=== PATIENT | female | born 2000 | race Caucasian/White ===

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

== ENCOUNTER 2021-07-27 11:54 | Outpatient (REF) | payer BC, MEDICAID, SELFPAY ==
[2021-07-27 12:40] LABS: COVID-19 Test Negative (Negative); IDNOW Serial# 16C4AD1C
== END 2021-07-27 11:55 | disposition home or self-care (01) ==
LOC: HO.LAB 11:54
PROVIDERS: Visit Provider Internal Medicine
DX: Z20.822 Contact with and (suspected) exposure to COVID-19 (principal)
CPT/HCPCS: 87635; C9803

== ENCOUNTER 2021-08-17 13:16 | Outpatient (REF) | payer BC, MEDICAID, SELFPAY ==
[2021-08-17 13:40] LABS: COVID-19 Test Negative (Negative); IDNOW Serial# 16C4AD1C
== END 2021-08-17 13:17 | disposition home or self-care (01) ==
LOC: HO.LAB 13:16
PROVIDERS: Visit Provider Internal Medicine
DX: Z20.822 Contact with and (suspected) exposure to COVID-19 (principal)
CPT/HCPCS: 87635; C9803

== ENCOUNTER 2021-08-19 11:08 | Outpatient (REF) | payer BC, MEDICAID, SELFPAY ==
[2021-08-19 11:28] LABS: COVID-19 Test Negative (Negative); IDNOW Serial# 16C4AD1C
== END 2021-08-19 11:09 | disposition home or self-care (01) ==
LOC: HO.LAB 11:08
PROVIDERS: Visit Provider Internal Medicine
DX: Z20.822 Contact with and (suspected) exposure to COVID-19 (principal)
CPT/HCPCS: 87635; C9803

== ENCOUNTER 2021-08-31 19:07 | Emergency (ER) | payer BC, MEDICAID, SELFPAY ==
[2021-08-31 20:58] VITALS: BP 147/91; PULSE 93; RESP 18; TEMP 36.6; O2SAT 100; BMI 35.2
--- NOTE | 2021-08-31 21:01 | ECG_ITS ---
Test Reason : CHEST PAIN Blood Pressure : / mmHG Vent. Rate : 095 BPM Atrial Rate : 095 BPM P-R Int : 132 ms QRS Dur : 080 ms QT Int : 352 ms P-R-T Axes : 074 092 059 degrees QTc Int : 442 ms Normal sinus rhythm with sinus arrhythmia Rightward axis Borderline ECG No previous ECGs available Referred By: Generic ED Physician Electronically Signed By:KATIE RAMÍREZ
[2021-08-31 23:22] LABS: MANUAL DIFF FLAG NO
[2021-08-31 23:23] LABS: Basophils Absolute Auto 0.1 X10*3/uL (0.0-0.2); Basophils Percent Auto 0.5 % (0-2); Eosinophils Absolute Auto 0.1 X10*3/uL (0.0-0.4); Eosinophils Percent Auto 0.6 % (0-4); Hematocrit 40.4 % (37.0-47.0); Hemoglobin 12.6 g/dl (12.0-16.0); Imm Gran Abs Auto 0.04 X10*3/uL (0.00-0.03); Imm Gran Pct Auto 0.3 % (0.0-0.4); Lymphocytes Absolute Auto 3.9 X10*3/uL (1.2-4.9); Lymphocytes Percent Auto 27.2 % (20-40); Mean Corpuscular HGB Conc 31.2 g/dl (31.0-35.0); Mean Corpuscular Hemoglobin 25.6 pg (27.0-33.0); Mean Corpuscular Volume 82.1 fL (80.0-98.0); Mean Platelet Volume 10.4 fL (9.4-12.3); Monocytes Absolute Auto 1.2 X10*3/uL (0.1-1.2); Monocytes Percent Auto 8.4 % (2-11); Platelet Count 351 X10*3/uL (160-400); Red Blood Count 4.92 X10*6/uL (4.20-5.50); Red Cell Distribution Width 13.2 % (11.0-16.0); White Blood Count 14.2 X10*3/uL (4.8-10.8)
[2021-08-31 23:27] LABS: UPreg QC Valid YES; Urine Pregnancy NEGATIVE (NEGATIVE)
[2021-08-31 23:31] LABS: D Dimer High Sensitivity 321 NG/ML
[2021-08-31 23:36] LABS: Anion Gap 11 (12-20); Blood Urea Nitrogen 8 mg/dL (9-16); Calcium 9.7 mg/dL (8.4-10.2); Carbon Dioxide 26 mmol/L (22-29); Chloride 107 mmol/L (96-108); Creatinine Clr Calc Pharmacy 137.7; Estimated Glomerular Filt Rate > 60; Glucose Random 93 mg/dL (60-115); Sodium 140 mmol/L (135-145)
[2021-08-31 23:36] LABS: COVID-19 Test Negative (Negative)
[2021-08-31 23:44] LABS: Troponin-I High Sensitivity < 3.5 ng/L (<3.5-17.0)
[2021-08-31 23:44] LABS: Appearance Urine CLEAR; Color Urine YELLOW; Glucose Urine UA NEG (NEG); Leukocyte Esterase Urine TRACE (NEG); Nitrite Urine NEG (NEG); UACC Culture Trigger YES; Urine Blood NEG (NEG); Urine Ketones NEG (NEG); Urine Protein NEG (NEG-TRACE)
[2021-08-31 23:47] LABS: Bacteria Urine 2+ /LPF; Mucus Urine 2+ /LPF; Squamous Epithelial Cell Urine 1+ /LPF
[2021-09-01 00:01] LABS: Erythrocyte Sedimentation Rate 13 MM/HR (0-20)
[2021-09-01 00:42] VITALS: BP 108/76; PULSE 99; RESP 18; TEMP 36.9; O2SAT 99
--- NOTE | 2021-09-01 00:57 | ED.ARRPALP ---
HPI - Arrhythmia/Palpitations General Chief Complaint: Arrhythmia/Palpitations Stated Complaint: chest pain Time Seen by Provider: 08/31/21 22:53 Source: patient Mode of arrival: ambulatory Limitations: no limitations History of Present Illness HPI narrative: 21-year-old female who presents emergency department for evaluation of palpitations. The patient states that yesterday morning at around 09:00 hours she experienced a fast heart pounding sensation. She states that the sensation when last seconds to 2 minutes at its most. She did feel slightly dizzy with the sensation. She denied losing consciousness. Chest pain, shortness of breath or dyspnea on exertion. She has not had any pain or swelling in her lower extremities. She denies going on any long trips. She states that the symptoms were intermittent she was getting them throughout the day therefore she came to the emergency department for evaluation. The patient states she does have anxiety that is not treated. She states that she was anxious throughout the day. She cannot specify any thing that is causing her anxiety. She drinks 1-2 cups of coffee every other day, she does not drink any energy drinks. She states she does vape tobacco products. She occasionally smokes marijuana and she last smoked marijuana on Monday, 5 days prior to evaluation. The patient does not take oral contraceptives. Related Data Allergies Allergy/AdvReac Type Severity Reaction Status Date / Time No Known Allergies Allergy Verified 08/31/21 20:58 Review of Systems Review of Systems: Yes all other systems are reviewed and are negative [facility] Past Medical History [facility] Narrative: Past medical history: Anxiety. Past surgical history: None. Social history: Patient smokes/vapes tobacco products. She denies alcohol use. She states she occasionally smokes marijuana. Social History Social History Advance Directives: No Physical Exam Vital Signs: Vital Signs: Last Vital Signs Temp 98.4 F 09/01/21 00:42 Pulse 99 09/01/21 00:42 Resp 18 09/01/21 00:42 BP 108/76 09/01/21 00:42 Pulse Ox 99 09/01/21 00:42 BMI result Body Mass Index 35.2 Const: General: cooperative and no acute distress Orientation/consciousness: oriented to person and oriented to place Limitations: no limitations HENMT: Head: Yes normal to inspection, Yes normocephalic and Yes atraumatic Ears: external ears normal General nose exam: Normal external nose present Face and sinus: Yes normal facial exam Mouth: Normal oral and palatal mucosa present Throat: Yes posterior oropharynx normal Eyes: General: appearance normal, both eyes and all related structures Pupils: Equal, round and reactive pupils present Neck: Neck: Yes normal visual inspection, Yes no lymphadenopathy, Yes trachea midline and Yes supple Chest: Chest palpation & inspection: normal inspection of the chest and normal palpation of entire chest wall Resp: Effort & Inspection: normal respiratory effort and able to speak in complete sentences Auscultation: clear to auscultation bilaterally Cardio: Rate: regular rate Rhythm: regular rhythm Heart sounds: S1 normal heart sound present, S2 normal heart sound present and no murmurs GI: Inspection: Yes normal to inspection Palpation (GI): Soft to palpation, nontender and no guarding Auscultation: normal bowel sounds : General: Yes no CVA tenderness Back/Spine/Pelvis: Back: no CVA tenderness Skin: General skin exam: no rashes or lesions noted Neuro: General: oriented to person and oriented to place Cranial nerves: Yes CN's II-XII intact bilaterally and Yes Equal, round and reactive pupils present Cognition (Neuro): normal cognition Motor exam (neuro): 5/5 motor strength present throughout Extrem: General: Yes normal to inspection Psych: Appearance: grossly normal Speech and movement: Normal speech and movement present Affect: normal affect Attitude: cooperative Thought process: Normal thought process present Thought content: Normal thought content present Course Course Course Narrative: 21-year-old female who presents emergency department for evaluation of intermittent palpitations lasting from seconds to 2 minutes at its most. Patient had occasional associated dizziness but no other concerning symptoms. She did not lose consciousness. She denied chest pain, shortness of breath or dyspnea on exertion. She has not gone on any long trips and is not on oral contraceptives. Vital signs did reveal an initial elevated blood pressure of 147/91 with repeat blood pressure of 108/76, she was not tachycardic. Her O2 saturation ranged from 99-100% on room air. Physical examination was unremarkable. Twelve EKG revealed no significant abnormalities. Laboratory evaluation [place] [address] and elevated D-dimer 321. Troponin was below detectable limits. At this time, I do not think the patient has a DVT or PE is the cause for symptoms. Patient's symptoms are more likely related to anxiety and possibly her caffeine intake. I did discuss this with her. The patient was given verbal and printed instructions and palpitations and discharged home. MDM - Arrhythmia/Palpitations Lab Data Result diagrams: 08/31/21 23:13 08/31/21 23:13 Labs: Lab Results 08/31/21 08/31/21 08/31/21 Range/Units 23:13 23:13 23:13 WBC (4.8-10.8) X10*3/uL RBC (4.20-5.50) X10*6/uL Hgb (12.0-16.0) g/dl Hct (37.0-47.0) % MCV (80.0-98.0) fL MCH (27.0-33.0) pg MCHC (31.0-35.0) g/dl RDW (11.0-16.0) % Plt Count (160-400) X10*3/uL MPV (9.4-12.3) fL Immature Gran % (Auto) (0.0-0.4) % Neut % (Auto) (45-73) % Lymph % (Auto) (20-40) % Mathews % (Auto) (2-11) % Eos % (Auto) (0-4) % Baso % (Auto) (0-2) % Lymph # (Auto) (1.2-4.9) X10*3/uL Mathews # (Auto) (0.1-1.2) X10*3/uL Eos # (Auto) (0.0-0.4) X10*3/uL Baso # (Auto) (0.0-0.2) X10*3/uL Abs Immat Gran (auto) (0.00-0.03) X10*3/uL Absolute Neuts (auto) (2.0-8.3) x10*3/uL Absolute Nucleated RBC (0.0-0.012) X10*3/uL Nucleated RBC % (auto) (0.0-0.2) /100WBC ESR 13 (0-20) MM/HR D-Dimer High Sensitivty 321 NG/ML Sodium 140 (135-145) mmol/L Potassium 4.0 (3.3-5.1) mmol/L Chloride 107 (96-108) mmol/L Carbon Dioxide 26 (22-29) mmol/L Anion Gap 11 L (12-20) BUN 8 L (9-16) mg/dL Creatinine 0.72 (0.5-1.4) mg/dL Estim Creat Clear Calc 137.7 Estimated GFR > 60 Random Glucose 93 (60-115) mg/dL Calcium 9.7 (8.4-10.2) mg/dL Troponin I High Sens (<3.5-17.0) ng/L Urine Color Urine Appearance Urine pH (5.0-8.0) Ur Specific Shepherd (1.005-1.025) Urine Protein (NEG-TRACE) MG/DL Urine Glucose (UA) (NEG) MG/DL Urine Ketones (NEG) MG/DL Urine Blood (NEG) Urine Nitrite (NEG) Ur Leukocyte Esterase (NEG) Urine RBC (0) /HPF Urine WBC (0-4) /HPF Ur Squamous Epith Cells /LPF Urine Bacteria /LPF Urine Mucus /LPF Urine Test (NEGATIVE) COVID-19 ([facility]) (Negative) COVID-19 Clin Com 08/31/21 08/31/21 08/31/21 Range/Units 23:13 23:13 23:14 WBC 14.2 H (4.8-10.8) X10*3/uL RBC 4.92 (4.20-5.50) X10*6/uL Hgb 12.6 (12.0-16.0) g/dl Hct 40.4 (37.0-47.0) % MCV 82.1 (80.0-98.0) fL MCH 25.6 L (27.0-33.0) pg MCHC 31.2 (31.0-35.0) g/dl RDW 13.2 (11.0-16.0) % Plt Count 351 (160-400) X10*3/uL MPV 10.4 (9.4-12.3) fL Immature Gran % (Auto) 0.3 (0.0-0.4) % Neut % (Auto) 63.0 (45-73) % Lymph % (Auto) 27.2 (20-40) % Mathews % (Auto) 8.4 (2-11) % Eos % (Auto) 0.6 (0-4) % Baso % (Auto) 0.5 (0-2) % Lymph # (Auto) 3.9 (1.2-4.9) X10*3/uL Mathews # (Auto) 1.2 (0.1-1.2) X10*3/uL Eos # (Auto) 0.1 (0.0-0.4) X10*3/uL Baso # (Auto) 0.1 (0.0-0.2) X10*3/uL Abs Immat Gran (auto) 0.04 H (0.00-0.03) X10*3/uL Absolute Neuts (auto) 9.0 H (2.0-8.3) x10*3/uL Absolute Nucleated RBC 0.000 (0.0-0.012) X10*3/uL Nucleated RBC % (auto) 0.0 (0.0-0.2) /100WBC ESR (0-20) MM/HR D-Dimer High Sensitivty NG/ML Sodium (135-145) mmol/L Potassium (3.3-5.1) mmol/L Chloride (96-108) mmol/L Carbon Dioxide (22-29) mmol/L Anion Gap (12-20) BUN (9-16) mg/dL Creatinine (0.5-1.4) mg/dL Estim Creat Clear Calc Estimated GFR Random Glucose (60-115) mg/dL Calcium (8.4-10.2) mg/dL Troponin I High Sens < 3.5 (<3.5-17.0) ng/L Urine Color Urine Appearance Urine pH (5.0-8.0) Ur Specific [place] (1.005-1.025) Urine Protein (NEG-TRACE) MG/DL Urine Glucose (UA) (NEG) MG/DL Urine Ketones (NEG) MG/DL Urine Blood (NEG) Urine Nitrite (NEG) Ur Leukocyte Esterase (NEG) Urine RBC (0) /HPF Urine WBC (0-4) /HPF Ur Squamous Epith Cells /LPF Urine Bacteria /LPF Urine Mucus /LPF Urine Test (NEGATIVE) COVID-19 ([facility]) Negative (Negative) COVID-19 Clin Com See Note 08/31/21 08/31/21 Range/Units 23:15 23:16 WBC (4.8-10.8) X10*3/uL RBC (4.20-5.50) X10*6/uL Hgb (12.0-16.0) g/dl Hct (37.0-47.0) % MCV (80.0-98.0) fL MCH (27.0-33.0) pg MCHC (31.0-35.0) g/dl RDW (11.0-16.0) % Plt Count (160-400) X10*3/uL MPV (9.4-12.3) fL Immature Gran % (Auto) (0.0-0.4) % Neut % (Auto) (45-73) % Lymph % (Auto) (20-40) % Mathews % (Auto) (2-11) % Eos % (Auto) (0-4) % Baso % (Auto) (0-2) % Lymph # (Auto) (1.2-4.9) X10*3/uL Mathews # (Auto) (0.1-1.2) X10*3/uL Eos # (Auto) (0.0-0.4) X10*3/uL Baso # (Auto) (0.0-0.2) X10*3/uL Abs Immat Gran (auto) (0.00-0.03) X10*3/uL Absolute Neuts (auto) (2.0-8.3) x10*3/uL Absolute Nucleated RBC (0.0-0.012) X10*3/uL Nucleated RBC % (auto) (0.0-0.2) /100WBC ESR (0-20) MM/HR D-Dimer High Sensitivty NG/ML Sodium (135-145) mmol/L Potassium (3.3-5.1) mmol/L Chloride (96-108) mmol/L Carbon Dioxide (22-29) mmol/L Anion Gap (12-20) BUN (9-16) mg/dL Creatinine (0.5-1.4) mg/dL Estim Creat Clear Calc Estimated GFR Random Glucose (60-115) mg/dL Calcium (8.4-10.2) mg/dL Troponin I High Sens (<3.5-17.0) ng/L Urine Color YELLOW Urine Appearance CLEAR Urine pH 7.0 (5.0-8.0) Ur Specific Shepherd 1.020 (1.005-1.025) Urine Protein NEG (NEG-TRACE) MG/DL Urine Glucose (UA) NEG (NEG) MG/DL Urine Ketones NEG (NEG) MG/DL Urine Blood NEG (NEG) Urine Nitrite NEG (NEG) Ur Leukocyte Esterase TRACE H (NEG) Urine RBC 1-4 (0) /HPF Urine WBC 1-4 (0-4) /HPF Ur Squamous Epith Cells 1+ /LPF Urine Bacteria 2+ /LPF Urine Mucus 2+ /LPF Urine Test NEGATIVE (NEGATIVE) COVID-19 ([facility]) (Negative) COVID-19 Clin Com Discharge Plan Discharge Clinical Impression: Palpitations, Anxiety Patient Disposition: Home, Self-Care Instructions: Heart Palpitations (DC), Anxiety (ED) Additional Instructions: Your 12 EKG was unremarkable. Your COVID-19 was negative. Your troponin was below detectable limits, this is a good sign and suggests that you have not had any heart damage as the cause of your fast heart beat. Your symptoms are consistent with palpitations, this can sometimes be triggered by anxiety or too much caffeine. Stop using caffeine products for at least 2 weeks. Follow-up with your doctor in 2 days. Please return to the emergency department if your symptoms get worse or if you develop any symptoms that are concerning to you. Please read the discharge instructions on anxiety and palpitations.
== END 2021-09-01 01:13 | disposition home or self-care (01) ==
PROVIDERS: Student in an Organized Health Care Education/Training Program; Emergency Provider Emergency Medicine Emergency Medical Services
DX: R00.2 Palpitations (principal); F41.9 Anxiety disorder, unspecified; Z20.822 Contact with and (suspected) exposure to COVID-19; F17.200 Nicotine dependence, unspecified, uncomplicated; F12.90 Cannabis use, unspecified, uncomplicated
CPT/HCPCS: 36415; 80048; 81001; 81025; 84484; 85025; 85379; 85652; 87086; 87635; 93005; 99284

== ENCOUNTER 2021-11-05 17:29 | Emergency (ER) | payer BC, MEDICAID, SELFPAY ==
[2021-11-05 17:32] VITALS: BP 133/80; PULSE 110; RESP 19; TEMP 36.6; O2SAT 99; BMI 36.0
[2021-11-05 18:10] LABS: COVID-19 Test Negative (Negative); IDNOW Serial# 55D5AD1C
[2021-11-05 18:11] LABS: Influenza A Negative (Negative); Influenza B2 Negative (Negative)
--- NOTE | 2021-11-05 18:32 | ED.GENADULT ---
HPI - General Adult General Chief complaint: General Medical Stated complaint: nausea/body aches/headaches Time Seen by Provider: 11/05/21 18:31 History of Present Illness HPI narrative: patient is a 21-year-old female presents today with generalized malaise body aches. Immunized for COVID. Symptoms been ongoing for 2 days. No focal weakness. No photophobia. No changes in vision. Positive headache positive generalized aches. No pain on urination. No frequency. No abdominal pain. No nausea no vomiting no diarrhea. Question coughing. No diaphoresis. Just feels very drained. Related Data Allergies Allergy/AdvReac Type Severity Reaction Status Date / Time No Known Allergies Allergy Verified 08/31/21 20:58 Review of Systems Review of Systems: Positive diffuse body ache no nausea no vomiting no diarrhea Yes all other systems are reviewed and are negative [facility] Past Medical History Attestation statement: The following information was validated with the patient. Social History Social History Advance Directives: No Advance Directives Information Provided: No Physical Exam ED Vital Signs: Vital Signs - 24 hr 11/05/21 17:32 Temperature 98 F Pulse Rate 110 H Respiratory Rate 19 Blood Pressure 133/80 Pulse Oximetry 99 BMI result Body Mass Index 36.0 Appearance: Alert. Oriented X3. No acute distress. Eyes: Pupils equal, round and reactive to light. ENT: Pharynx normal. Neck: Normal inspection. Neck supple. No lymph nodes noted. No crepitus CVS: Normal heart rate and rhythm. Pulses normal. Normal S1 and S2 Respiratory: No respiratory distress. Breath sounds normal. No Wheezing. No rales Abdomen: Soft and nontender. No rigidity. No distention. good BS x4 Skin: Skin warm and dry. Normal skin color. Normal skin turgor. Extremities: No lower extremity edema. Neurovascular intact to all extremities. No Lacerations. No Rash Neuro: Oriented X 3. No motor deficit. No sensory deficit. Moving all extermities. No slurred speech Medical Decision Making MDM Narrative Medical decision making narrative: COVID and flu test were negative. Urine no gross infection lots of contamination. Will discharge patient home likely viral syndrome. test was negative. Likely viral syndrome will discharge Lab Data Labs: Lab Results 11/05/21 11/05/21 11/05/21 Range/Units 17:40 17:40 18:36 Urine Color YELLOW Urine Appearance HAZY Urine pH 7.0 (5.0-8.0) Ur Specific [place] 1.025 (1.005-1.025) Urine Protein NEG (NEG-TRACE) MG/DL Urine Glucose (UA) NEG (NEG) MG/DL Urine Ketones 5 (NEG) MG/DL Urine Blood NEG (NEG) Urine Nitrite NEG (NEG) Ur Leukocyte Esterase 1+ H (NEG) Urine RBC 0 (0) /HPF Urine WBC 5-9 H (0-4) /HPF Ur Squamous Epith Cells 3+ /LPF Amorphous Sediment 2+ /LPF Urine Bacteria 2+ /LPF Urine Test (NEGATIVE) COVID-19 ([facility]) Negative (Negative) COVID-19 [facility] [employer] [facility] Com See Note Influenza Type A ([facility]) Negative (Negative) Influenza Type B ([facility]JA) Negative (Negative) Influenza A & B Note See Note 11/05/21 Range/Units 18:36 Urine Color Urine Appearance Urine pH (5.0-8.0) Ur Specific [place] (1.005-1.025) Urine Protein (NEG-TRACE) MG/DL Urine Glucose (UA) (NEG) MG/DL Urine Ketones (NEG) MG/DL Urine Blood (NEG) Urine Nitrite (NEG) Ur Leukocyte Esterase (NEG) Urine RBC (0) /HPF Urine WBC (0-4) /HPF Ur Squamous Epith Cells /LPF Amorphous Sediment /LPF Urine Bacteria /LPF Urine Test NEGATIVE (NEGATIVE) COVID-19 ([facility]) (Negative) COVID-19 [facility] [employer] [facility] Com Influenza Type A ([facility]JA) (Negative) Influenza Type B ([facility]JA) (Negative) Influenza A & B Note Discharge Plan Discharge Clinical Impression: Viral illness Patient Disposition: Home, Self-Care Instructions: Viral Syndrome (ED) Referrals: [facility] [Physician] -
[2021-11-05 18:58] LABS: Appearance Urine HAZY; Color Urine YELLOW; Glucose Urine UA NEG (NEG); Leukocyte Esterase Urine 1+ (NEG); Nitrite Urine NEG (NEG); Specific Gravity - Urine 1.025 (1.005-1.025); UACC Culture Trigger YES; Urine Blood NEG (NEG); Urine Ketones 5 MG/DL (NEG); Urine Protein NEG (NEG-TRACE)
[2021-11-05 19:00] LABS: UPreg QC Valid YES; Urine Pregnancy NEGATIVE (NEGATIVE)
[2021-11-05 19:07] LABS: Amorphous Sediment Urine 2+ /LPF; Bacteria Urine 2+ /LPF; RBC Urine 0 /HPF (0); Squamous Epithelial Cell Urine 3+ /LPF; UACC CULT YES
== END 2021-11-05 19:55 | disposition home or self-care (01) ==
PROVIDERS: Emergency Provider Emergency Medicine Emergency Medical Services
DX: B34.9 Viral infection, unspecified (principal); M79.10 Myalgia, unspecified site; R51.9 Headache, unspecified; Z20.822 Contact with and (suspected) exposure to COVID-19; Z79.899 Other long term (current) drug therapy
CPT/HCPCS: 81001; 81025; 87086; 87502; 87635; 99283; 99284

== ENCOUNTER 2021-11-22 11:47 | Outpatient (REF) | payer BC, MEDICAID, SELFPAY ==
[2021-11-22 12:12] LABS: COVID-19 Test Positive (Negative)
== END 2021-11-22 11:48 | disposition home or self-care (01) ==
LOC: HO.LAB 11:47
PROVIDERS: Visit Provider Internal Medicine
DX: Z20.822 Contact with and (suspected) exposure to COVID-19 (principal)
CPT/HCPCS: 87635; C9803

== ENCOUNTER 2022-10-31 12:08 | Emergency (ER) | payer BC, MEDICAID, SELFPAY ==
--- NOTE | ~2022-10-31 | CT_ITS ---
EXAMINATION: CT ABDOMEN AND PELVIS WITH CONTRAST CLINICAL INFORMATION: Abdominal pain. COMPARISON: None available. TECHNIQUE: Multidetector volumetric images were obtained from the superior aspect of the liver through the pubic symphysis following administration 85 mL of Omnipaque 350 intravenous contrast. Sagittal and coronal reformatted images were obtained on the technologist's workstation. Oral contrast: No This CT examination was performed using dose optimization techniques as appropriate, variously including the following: *Automated exposure control *Adjustment of mA and/or kV according to patient size (this includes techniques or standardized protocols for targeted exams where dose is matched to indication/reason for exam; i.e. extremities or head) *Use of iterative reconstruction technique DLP: 683 mGy-cm FINDINGS: LUNG BASES: The visualized lung bases are unremarkable. LIVER, GALLBLADDER, AND BILIARY TREE: The liver is normal in size, shape, and attenuation. No focal hepatic lesion or biliary ductal dilatation is present. The gallbladder is unremarkable with no evidence of radiopaque gallstones, gallbladder wall thickening, or obvious pericholecystic inflammatory changes. PANCREAS: Unremarkable. SPLEEN: Unremarkable. ADRENAL GLANDS: Unremarkable. KIDNEYS AND URETERS: The kidneys are normal in size, shape, and attenuation. No hydronephrosis, hydroureter, or calculi seen. No perinephric stranding. BLADDER: Unremarkable. GASTROINTESTINAL TRACT: Stomach, small bowel, and colon are normal in caliber. No bowel wall thickening. Appendix is normal. Trace intraperitoneal free fluid, possibly physiologic. No retroperitoneal free air. ABDOMINAL WALL: No significant hernia is appreciated. LYMPH NODES: Numerous lymph nodes are present in the central abdominal mesentery measuring up to 18 mm in short axis. No separate areas of retroperitoneal adenopathy are identified. VASCULAR: Unremarkable. PELVIC VISCERA: Uterus is normal in size and appearance. There is a 2.3 cm cystic focus in the right ovary, likely follicular cyst. No suspicious adnexal lesions are identified. OSSEOUS STRUCTURES: No acute osseous findings. There is Castellvi type IIB transitional anatomy at the lumbosacral junction. CT/CT abdomen pelvis w IV con IMPRESSION: 1. No acute intra-abdominal or intrapelvic abnormalities are identified. 2. Prominent lymph nodes in the central abdominal mesentery. These are of uncertain etiology, though could be due to an infectious or inflammatory process such as mesenteric adenitis. No separate adenopathy is identified. 3. Trace intraperitoneal free fluid, likely physiologic. No suspicious adnexal lesions. Normal appendix. Fleischner guidelines were followed.
[2022-10-31 14:01] VITALS: BP 116/75; PULSE 87; RESP 18; TEMP 36.6; O2SAT 100; BMI 32.5
--- NOTE | 2022-10-31 14:01 | ED_ITS ---
HPI - Nausea/Vomiting/Diarrhea General Chief complaint: Nausea/Vomiting/Diarrhea Stated complaint: nausea vomiting diarrhea Time Seen by Provider: 10/31/22 20:46 Related Data Previous Rx's Medication Instructions Recorded ondansetron 4 mg disintegrating 4 mg PO TID PRN nausea and 10/31/22 tablet vomiting 5 days #10 tabs Allergies Allergy/AdvReac Type Severity Reaction Status Date / Time No Known Allergies Allergy Verified 10/31/22 14:04 [facility] Social History Social History Smoked in Last 30 Days: No Use of substances other than those prescribed or required for medical reasons: No Advance Directives: No Advance Directives Information Provided: No Physical Exam Vital Signs: Vital Signs: Last Vital Signs Temp 98.6 F 10/31/22 20:56 Pulse 70 10/31/22 20:56 Resp 16 10/31/22 20:56 BP 105/64 10/31/22 20:56 Pulse Ox 96 10/31/22 20:56 O2 Del Method Room Air 10/31/22 20:56 BMI result Body Mass Index 32.5 Course Course Course Narrative: RME: 22yo F c/o abdominal discomfort, nausea, vomiting and 1-3 loose stools daily x1 mos. Admits to blood in stool yesterday & decreased PO intake. Denies travel, fever, or recent abx use Labs, UA, Preg, COVID/FLU, Occult, Stool studies/CDiff ordered Full HPI, ROS and PE to be performed by primary ED provider. Medications Administered Discontinued Medications Generic Name Dose Route Start Last Admin Trade Name Freq PRN Reason Stop Dose Admin Sodium Chloride 1,000 mls @ 999 mls/hr 10/31/22 21:30 10/31/22 23:29 Ns IV 10/31/22 22:30 Infused .Q1H1M NADER Infusion Iohexol 100 ml 10/31/22 22:50 10/31/22 22:50 Iohexol 350 Mg/Ml 100 Ml Infus..Btl IV 10/31/22 22:51 85 ml ONCE ONE Administration Ondansetron HCl 4 mg 10/31/22 21:20 10/31/22 22:06 Ondansetron Hcl 4 Mg/2 Ml Vial IVPUSH 10/31/22 21:21 4 mg ONCE ONE Administration Ondansetron HCl 4 mg 10/31/22 23:15 10/31/22 23:29 Ondansetron Hcl 4 Mg/2 Ml Vial IVPUSH 10/31/22 23:16 4 mg ONCE ONE Administration Medical Decision Making Lab Data 10/31/22 16:10 10/31/22 16:09 Labs: Lab Results 10/31/22 10/31/22 10/31/22 Range/Units 16:09 16:09 16:09 WBC (4.8-10.8) X10*3/uL RBC (4.20-5.50) X10*6/uL Hgb (12.0-16.0) g/dl Hct (37.0-47.0) % MCV (80.0-98.0) fL MCH (27.0-33.0) pg MCHC (31.0-35.0) g/dl RDW (11.0-16.0) % Plt Count (160-400) X10*3/uL MPV (9.4-12.3) fL Immature Gran % (Auto) (0.0-0.4) % Neut % (Auto) (45-73) % Lymph % (Auto) (20-40) % [place] % (Auto) (2-11) % Eos % (Auto) (0-4) % Baso % (Auto) (0-2) % Lymph # (Auto) (1.2-4.9) X10*3/uL [place] # (Auto) (0.1-1.2) X10*3/uL Eos # (Auto) (0.0-0.4) X10*3/uL Baso # (Auto) (0.0-0.2) X10*3/uL Abs Immat Gran (auto) (0.00-0.03) X10*3/uL Absolute Neuts (auto) (2.0-8.3) x10*3/uL Absolute Nucleated RBC (0.0-0.012) X10*3/uL Nucleated RBC % (auto) (0.0-0.2) /100WBC Sodium 142 (135-145) mmol/L Potassium 4.2 (3.3-5.1) mmol/L Chloride 107 (96-108) mmol/L Carbon Dioxide 26 (22-29) mmol/L Anion Gap 13 (12-20) BUN 8 L (9-16) mg/dL Creatinine 0.69 (0.5-1.4) mg/dL Estim Creat Clear Calc 136.9 Estimated GFR > 60 Random Glucose 87 (60-115) mg/dL Calcium 9.5 (8.4-10.2) mg/dL Magnesium 2.2 (1.6-2.6) mg/dL Total Bilirubin 0.7 (0.0-1.0) mg/dL Direct Bilirubin 0.2 (0.0-0.5) mg/dL AST 23 (5-31) U/L ALT 24 (0-31) U/L Alkaline Phosphatase 59 (39-117) U/L Total Protein 7.2 (6.5-8.0) g/dL Albumin 4.1 (3.5-5.0) g/dL Lipase 11 (8-78) U/L Urine Color Urine Appearance Urine pH (5.0-9.0) Ur Specific [place] (1.005-1.025) Urine Protein (Neg-Trace) mg/dL Urine Glucose (UA) (Negative) mg/dL Urine Ketones (Negative) mg/dL Urine Blood (Negative) Urine Nitrite (Negative) Ur Leukocyte Esterase (Negative) Urine Test (NEGATIVE) Stool Occult Blood (NEGATIVE) COVID-19 ([facility]) Negative (Negative) COVID-19 Clin Com See Note Influenza Type A (TONJA) Negative (Negative) Influenza Type B (TONJA) Negative (Negative) Influenza A & B Note See Note 10/31/22 10/31/22 10/31/22 Range/Units 16:10 20:51 20:51 WBC 10.0 (4.8-10.8) X10*3/uL RBC 4.69 (4.20-5.50) X10*6/uL Hgb 12.3 (12.0-16.0) g/dl Hct 38.8 (37.0-47.0) % MCV 82.7 (80.0-98.0) fL MCH 26.2 L (27.0-33.0) pg MCHC 31.7 (31.0-35.0) g/dl RDW 13.7 (11.0-16.0) % Plt Count 312 (160-400) X10*3/uL MPV 9.6 (9.4-12.3) fL Immature Gran % (Auto) 0.3 (0.0-0.4) % Neut % (Auto) 60.5 (45-73) % Lymph % (Auto) 29.1 (20-40) % [place] % (Auto) 9.3 (2-11) % Eos % (Auto) 0.5 (0-4) % Baso % (Auto) 0.3 (0-2) % Lymph # (Auto) 2.9 (1.2-4.9) X10*3/uL [place] # (Auto) 0.9 (0.1-1.2) X10*3/uL Eos # (Auto) 0.1 (0.0-0.4) X10*3/uL Baso # (Auto) 0.0 (0.0-0.2) X10*3/uL Abs Immat Gran (auto) 0.03 (0.00-0.03) X10*3/uL Absolute Neuts (auto) 6.0 (2.0-8.3) x10*3/uL Absolute Nucleated RBC 0.000 (0.0-0.012) X10*3/uL Nucleated RBC % (auto) 0.0 (0.0-0.2) /100WBC Sodium (135-145) mmol/L Potassium (3.3-5.1) mmol/L Chloride (96-108) mmol/L Carbon Dioxide (22-29) mmol/L Anion Gap (12-20) BUN (9-16) mg/dL Creatinine (0.5-1.4) mg/dL Estim Creat Clear Calc Estimated GFR Random Glucose (60-115) mg/dL Calcium (8.4-10.2) mg/dL Magnesium (1.6-2.6) mg/dL Total Bilirubin (0.0-1.0) mg/dL Direct Bilirubin (0.0-0.5) mg/dL AST (5-31) U/L ALT (0-31) U/L Alkaline Phosphatase (39-117) U/L Total Protein (6.5-8.0) g/dL Albumin (3.5-5.0) g/dL Lipase (8-78) U/L Urine Color Yellow Urine Appearance Clear Urine pH 6.5 (5.0-9.0) Ur Specific [place] >= 1.030 H (1.005-1.025) Urine Protein Trace (Neg-Trace) mg/dL Urine Glucose (UA) Negative (Negative) mg/dL Urine Ketones >=160 (Negative) mg/dL Urine Blood Negative (Negative) Urine Nitrite Negative (Negative) Ur Leukocyte Esterase Negative (Negative) Urine Test NEGATIVE (NEGATIVE) Stool Occult Blood (NEGATIVE) COVID-19 ([facility]) (Negative) COVID-19 Clin Com Influenza Type A (TONJA) (Negative) Influenza Type B (TONJA) (Negative) Influenza A & B Note 10/31/22 Range/Units 21:28 WBC (4.8-10.8) X10*3/uL RBC (4.20-5.50) X10*6/uL Hgb (12.0-16.0) g/dl Hct (37.0-47.0) % MCV (80.0-98.0) fL MCH (27.0-33.0) pg MCHC (31.0-35.0) g/dl RDW (11.0-16.0) % Plt Count (160-400) X10*3/uL MPV (9.4-12.3) fL Immature Gran % (Auto) (0.0-0.4) % Neut % (Auto) (45-73) % Lymph % (Auto) (20-40) % [place] % (Auto) (2-11) % Eos % (Auto) (0-4) % Baso % (Auto) (0-2) % Lymph # (Auto) (1.2-4.9) X10*3/uL [place] # (Auto) (0.1-1.2) X10*3/uL Eos # (Auto) (0.0-0.4) X10*3/uL Baso # (Auto) (0.0-0.2) X10*3/uL Abs Immat Gran (auto) (0.00-0.03) X10*3/uL Absolute Neuts (auto) (2.0-8.3) x10*3/uL Absolute Nucleated RBC (0.0-0.012) X10*3/uL Nucleated RBC % (auto) (0.0-0.2) /100WBC Sodium (135-145) mmol/L Potassium (3.3-5.1) mmol/L Chloride (96-108) mmol/L Carbon Dioxide (22-29) mmol/L Anion Gap (12-20) BUN (9-16) mg/dL Creatinine (0.5-1.4) mg/dL Estim Creat Clear Calc Estimated GFR Random Glucose (60-115) mg/dL Calcium (8.4-10.2) mg/dL Magnesium (1.6-2.6) mg/dL Total Bilirubin (0.0-1.0) mg/dL Direct Bilirubin (0.0-0.5) mg/dL AST (5-31) U/L ALT (0-31) U/L Alkaline Phosphatase (39-117) U/L Total Protein (6.5-8.0) g/dL Albumin (3.5-5.0) g/dL Lipase (8-78) U/L Urine Color Urine Appearance Urine pH (5.0-9.0) Ur Specific [place] (1.005-1.025) Urine Protein (Neg-Trace) mg/dL Urine Glucose (UA) (Negative) mg/dL Urine Ketones (Negative) mg/dL Urine Blood (Negative) Urine Nitrite (Negative) Ur Leukocyte Esterase (Negative) Urine Test (NEGATIVE) Stool Occult Blood NEGATIVE (NEGATIVE) COVID-19 ([facility]) (Negative) COVID-19 Clin Com Influenza Type A (TONJA) (Negative) Influenza Type B (TONJA) (Negative) Influenza A & B Note Discharge Plan Discharge Clinical Impression: Gastroenteritis Patient Disposition: Home, Self-Care Instructions: Acute Nausea and Vomiting (ED), Acute Diarrhea (ED) Prescriptions: New ondansetron 4 mg tablet,disintegrating 4 mg PO TID PRN (Reason: nausea and vomiting) 5 Days Qty: 10 0RF Referrals: Micki Hernandez MD [Primary Care Provider] - 11/02/22 Stand Alone Forms: Work/School Release Interventions: ED Discharge Assessment Last Done: 10/31/22 23:40 Discharge Date/Time: 10/31/22 23:40
[2022-10-31 16:16] LABS: MANUAL DIFF FLAG NO
[2022-10-31 16:18] LABS: Basophils Percent Auto 0.3 % (0-2); Eosinophils Absolute Auto 0.1 X10*3/uL (0.0-0.4); Eosinophils Percent Auto 0.5 % (0-4); Hematocrit 38.8 % (37.0-47.0); Hemoglobin 12.3 g/dl (12.0-16.0); Imm Gran Abs Auto 0.03 X10*3/uL (0.00-0.03); Imm Gran Pct Auto 0.3 % (0.0-0.4); Lymphocytes Absolute Auto 2.9 X10*3/uL (1.2-4.9); Lymphocytes Percent Auto 29.1 % (20-40); Mean Corpuscular HGB Conc 31.7 g/dl (31.0-35.0); Mean Corpuscular Hemoglobin 26.2 pg (27.0-33.0); Mean Corpuscular Volume 82.7 fL (80.0-98.0); Mean Platelet Volume 9.6 fL (9.4-12.3); Monocytes Absolute Auto 0.9 X10*3/uL (0.1-1.2); Monocytes Percent Auto 9.3 % (2-11); Neutrophils Percent Auto 60.5 % (45-73); Platelet Count 312 X10*3/uL (160-400); Red Blood Count 4.69 X10*6/uL (4.20-5.50); Red Cell Distribution Width 13.7 % (11.0-16.0)
[2022-10-31 16:35] LABS: Alanine Aminotransferase 24 U/L (0-31); Albumin Level 4.1 g/dL (3.5-5.0); Alkaline Phosphatase 59 U/L (39-117); Anion Gap 13 (12-20); Aspartate Amino Transferase 23 U/L (5-31); Bilirubin Direct 0.2 mg/dL (0.0-0.5); Bilirubin Total 0.7 mg/dL (0.0-1.0); Blood Urea Nitrogen 8 mg/dL (9-16); Calcium 9.5 mg/dL (8.4-10.2); Carbon Dioxide 26 mmol/L (22-29); Chloride 107 mmol/L (96-108); Creatinine Clr Calc Pharmacy 136.9; Estimated Glomerular Filt Rate > 60; Glucose Random 87 mg/dL (60-115); Lipase 11 U/L (8-78); Magnesium 2.2 mg/dL (1.6-2.6); Potassium 4.2 mmol/L (3.3-5.1); Sodium 142 mmol/L (135-145); Total Protein 7.2 g/dL (6.5-8.0)
[2022-10-31 16:50] LABS: COVID-19 Test Negative (Negative); IDNOW Serial# 08D9AD1C; IDNOW Serial# BCCEAD1C; Influenza A Negative (Negative); Influenza B2 Negative (Negative)
[2022-10-31 20:56] VITALS: BP 105/64; PULSE 70; RESP 16; TEMP 37; O2SAT 96
[2022-10-31 20:57] LABS: Appearance Urine Clear; Color Urine Yellow; Glucose Urine UA Negative (Negative); Leukocyte Esterase Urine Negative (Negative); Nitrite Urine Negative (Negative); PH 6.5 (5.0-9.0); Specific Gravity - Urine >= 1.030 (1.005-1.025); Urine Blood Negative (Negative); Urine Ketones >=160 mg/dL (Negative); Urine Protein Trace mg/dL (Neg-Trace)
--- NOTE | 2022-10-31 21:21 | ED.NAVMDI ---
HPI - Nausea/Vomiting/Diarrhea General Chief complaint: Nausea/Vomiting/Diarrhea Stated complaint: nausea vomiting diarrhea Time Seen by Provider: 10/31/22 20:46 History of Present Illness HPI Narrative: Patient is a 22-year-old female presents today with having nausea vomiting diarrhea patient claims the stool was actually brown. Multiple episodes of diarrhea today. Positive abdominal cramping. No fever no chills. No chest pain. No recent antibiotics. No recent travel. Patient from home. Related Data Previous Rx's Medication Instructions Recorded ondansetron 4 mg disintegrating 4 mg PO TID PRN nausea and 10/31/22 tablet vomiting 5 days #10 tabs Allergies Allergy/AdvReac Type Severity Reaction Status Date / Time No Known Allergies Allergy Verified 10/31/22 14:04 Review of Systems Review of Systems: Positive abdominal pain positive diarrhea positive nausea vomiting. No history of abdominal surgeries Yes all other systems are reviewed and are negative [facility] Past Medical History Attestation statement: The following information was validated with the patient. Social History Social History Advance Directives: No Advance Directives Information Provided: No Physical Exam Vital Signs: Vital Signs: Last Vital Signs Temp 98.6 F 10/31/22 20:56 Pulse 70 10/31/22 20:56 Resp 16 10/31/22 20:56 BP 105/64 10/31/22 20:56 Pulse Ox 96 10/31/22 20:56 O2 Del Method Room Air 10/31/22 20:56 BMI result Body Mass Index 32.5 Appearance: Alert. Oriented X3. No acute distress. Eyes: Pupils equal, round and reactive to light. ENT: Pharynx normal. Neck: Normal inspection. Neck supple. No lymph nodes noted. No crepitus CVS: Normal heart rate and rhythm. Pulses normal. Normal S1 and S2 Respiratory: No respiratory distress. Breath sounds normal. No Wheezing. No rales Abdomen: Soft and nontender. No rigidity. No distention. good BS x4 Skin: Skin warm and dry. Normal skin color. Normal skin turgor. Extremities: No lower extremity edema. Neurovascular intact to all extremities. No Lacerations. No Rash Neuro: Oriented X 3. No motor deficit. No sensory deficit. Moving all extermities. No slurred speech Medications Administered Discontinued Medications Generic Name Dose Route Start Last Admin Trade Name Miroslava PRN Reason Stop Dose Admin Sodium Chloride 1,000 mls @ 999 mls/hr 10/31/22 21:30 10/31/22 22:06 Ns IV 10/31/22 22:30 999 mls/hr .Q1H1M NADER Administration Iohexol 100 ml 10/31/22 22:50 10/31/22 22:50 Iohexol 350 Mg/Ml 100 Ml Infus..Btl IV 10/31/22 22:51 85 ml ONCE ONE Administration Ondansetron HCl 4 mg 10/31/22 21:20 10/31/22 22:06 Ondansetron Hcl 4 Mg/2 Ml Vial IVPUSH 10/31/22 21:21 4 mg ONCE ONE Administration Medical Decision Making Medical Decision Making [facility] Narrative: Patient presents today with having nausea vomiting diarrhea generalized malaise. Patient's stool was actually heme-negative. No evidence of bleeding. CT scan of the abdomen pelvis was done. There was no evidence of appendicitis. No evidence of abscess perforation. test was negative no related issues. Patient's urine showed no signs of infection. Will discharge patient home. Close follow-up on an outpatient basis Zofran for nausea likely gastroenteritis. Differential Diagnosis Differential Diagnoses: The differential diagnosis associated with the presentation includes Obstruction abscess perforation diverticulitis, appendicitis, kidney stone Lab Data MDM Lab Attestation statement: I reviewed the patient's lab results. 10/31/22 16:10 10/31/22 16:09 Labs: Lab Results 10/31/22 10/31/22 10/31/22 Range/Units 16:09 16:09 16:09 WBC (4.8-10.8) X10*3/uL RBC (4.20-5.50) X10*6/uL Hgb (12.0-16.0) g/dl Hct (37.0-47.0) % MCV (80.0-98.0) fL MCH (27.0-33.0) pg MCHC (31.0-35.0) g/dl RDW (11.0-16.0) % Plt Count (160-400) X10*3/uL MPV (9.4-12.3) fL Immature Gran % (Auto) (0.0-0.4) % Neut % (Auto) (45-73) % Lymph % (Auto) (20-40) % [place] % (Auto) (2-11) % Eos % (Auto) (0-4) % Baso % (Auto) (0-2) % Lymph # (Auto) (1.2-4.9) X10*3/uL [place] # (Auto) (0.1-1.2) X10*3/uL Eos # (Auto) (0.0-0.4) X10*3/uL Baso # (Auto) (0.0-0.2) X10*3/uL Abs Immat Gran (auto) (0.00-0.03) X10*3/uL Absolute Neuts (auto) (2.0-8.3) x10*3/uL Absolute Nucleated RBC (0.0-0.012) X10*3/uL Nucleated RBC % (auto) (0.0-0.2) /100WBC Sodium 142 (135-145) mmol/L Potassium 4.2 (3.3-5.1) mmol/L Chloride 107 (96-108) mmol/L Carbon Dioxide 26 (22-29) mmol/L Anion Gap 13 (12-20) BUN 8 L (9-16) mg/dL Creatinine 0.69 (0.5-1.4) mg/dL Estim Creat Clear Calc 136.9 Estimated GFR > 60 Random Glucose 87 (60-115) mg/dL Calcium 9.5 (8.4-10.2) mg/dL Magnesium 2.2 (1.6-2.6) mg/dL Total Bilirubin 0.7 (0.0-1.0) mg/dL Direct Bilirubin 0.2 (0.0-0.5) mg/dL AST 23 (5-31) U/L ALT 24 (0-31) U/L Alkaline Phosphatase 59 (39-117) U/L Total Protein 7.2 (6.5-8.0) g/dL Albumin 4.1 (3.5-5.0) g/dL Lipase 11 (8-78) U/L Urine Color Urine Appearance Urine pH (5.0-9.0) Ur Specific [place] (1.005-1.025) Urine Protein (Neg-Trace) mg/dL Urine Glucose (UA) (Negative) mg/dL Urine Ketones (Negative) mg/dL Urine Blood (Negative) Urine Nitrite (Negative) Ur Leukocyte Esterase (Negative) Urine Test (NEGATIVE) Stool Occult Blood (NEGATIVE) COVID-19 ([facility]) Negative (Negative) COVID-19 Clin Com See Note Influenza Type A (TONJA) Negative (Negative) Influenza Type B (TONJA) Negative (Negative) Influenza A & B Note See Note 10/31/22 10/31/22 10/31/22 Range/Units 16:10 20:51 20:51 WBC 10.0 (4.8-10.8) X10*3/uL RBC 4.69 (4.20-5.50) X10*6/uL Hgb 12.3 (12.0-16.0) g/dl Hct 38.8 (37.0-47.0) % MCV 82.7 (80.0-98.0) fL MCH 26.2 L (27.0-33.0) pg MCHC 31.7 (31.0-35.0) g/dl RDW 13.7 (11.0-16.0) % Plt Count 312 (160-400) X10*3/uL MPV 9.6 (9.4-12.3) fL Immature Gran % (Auto) 0.3 (0.0-0.4) % Neut % (Auto) 60.5 (45-73) % Lymph % (Auto) 29.1 (20-40) % [place] % (Auto) 9.3 (2-11) % Eos % (Auto) 0.5 (0-4) % Baso % (Auto) 0.3 (0-2) % Lymph # (Auto) 2.9 (1.2-4.9) X10*3/uL [place] # (Auto) 0.9 (0.1-1.2) X10*3/uL Eos # (Auto) 0.1 (0.0-0.4) X10*3/uL Baso # (Auto) 0.0 (0.0-0.2) X10*3/uL Abs Immat Gran (auto) 0.03 (0.00-0.03) X10*3/uL Absolute Neuts (auto) 6.0 (2.0-8.3) x10*3/uL Absolute Nucleated RBC 0.000 (0.0-0.012) X10*3/uL Nucleated RBC % (auto) 0.0 (0.0-0.2) /100WBC Sodium (135-145) mmol/L Potassium (3.3-5.1) mmol/L Chloride (96-108) mmol/L Carbon Dioxide (22-29) mmol/L Anion Gap (12-20) BUN (9-16) mg/dL Creatinine (0.5-1.4) mg/dL Estim Creat Clear Calc Estimated GFR Random Glucose (60-115) mg/dL Calcium (8.4-10.2) mg/dL Magnesium (1.6-2.6) mg/dL Total Bilirubin (0.0-1.0) mg/dL Direct Bilirubin (0.0-0.5) mg/dL AST (5-31) U/L ALT (0-31) U/L Alkaline Phosphatase (39-117) U/L Total Protein (6.5-8.0) g/dL Albumin (3.5-5.0) g/dL Lipase (8-78) U/L Urine Color Yellow Urine Appearance Clear Urine pH 6.5 (5.0-9.0) Ur Specific [place] >= 1.030 H (1.005-1.025) Urine Protein Trace (Neg-Trace) mg/dL Urine Glucose (UA) Negative (Negative) mg/dL Urine Ketones >=160 (Negative) mg/dL Urine Blood Negative (Negative) Urine Nitrite Negative (Negative) Ur Leukocyte Esterase Negative (Negative) Urine Test NEGATIVE (NEGATIVE) Stool Occult Blood (NEGATIVE) COVID-19 ([facility]) (Negative) COVID-19 Clin Com Influenza Type A (TONJA) (Negative) Influenza Type B (TONJA) (Negative) Influenza A & B Note 10/31/22 Range/Units 21:28 WBC (4.8-10.8) X10*3/uL RBC (4.20-5.50) X10*6/uL Hgb (12.0-16.0) g/dl Hct (37.0-47.0) % MCV (80.0-98.0) fL MCH (27.0-33.0) pg MCHC (31.0-35.0) g/dl RDW (11.0-16.0) % Plt Count (160-400) X10*3/uL MPV (9.4-12.3) fL Immature Gran % (Auto) (0.0-0.4) % Neut % (Auto) (45-73) % Lymph % (Auto) (20-40) % [place] % (Auto) (2-11) % Eos % (Auto) (0-4) % Baso % (Auto) (0-2) % Lymph # (Auto) (1.2-4.9) X10*3/uL [place] # (Auto) (0.1-1.2) X10*3/uL Eos # (Auto) (0.0-0.4) X10*3/uL Baso # (Auto) (0.0-0.2) X10*3/uL Abs Immat Gran (auto) (0.00-0.03) X10*3/uL Absolute Neuts (auto) (2.0-8.3) x10*3/uL Absolute Nucleated RBC (0.0-0.012) X10*3/uL Nucleated RBC % (auto) (0.0-0.2) /100WBC Sodium (135-145) mmol/L Potassium (3.3-5.1) mmol/L Chloride (96-108) mmol/L Carbon Dioxide (22-29) mmol/L Anion Gap (12-20) BUN (9-16) mg/dL Creatinine (0.5-1.4) mg/dL Estim Creat Clear Calc Estimated GFR Random Glucose (60-115) mg/dL Calcium (8.4-10.2) mg/dL Magnesium (1.6-2.6) mg/dL Total Bilirubin (0.0-1.0) mg/dL Direct Bilirubin (0.0-0.5) mg/dL AST (5-31) U/L ALT (0-31) U/L Alkaline Phosphatase (39-117) U/L Total Protein (6.5-8.0) g/dL Albumin (3.5-5.0) g/dL Lipase (8-78) U/L Urine Color Urine Appearance Urine pH (5.0-9.0) Ur Specific [place] (1.005-1.025) Urine Protein (Neg-Trace) mg/dL Urine Glucose (UA) (Negative) mg/dL Urine Ketones (Negative) mg/dL Urine Blood (Negative) Urine Nitrite (Negative) Ur Leukocyte Esterase (Negative) Urine Test (NEGATIVE) Stool Occult Blood NEGATIVE (NEGATIVE) COVID-19 ([facility]) (Negative) COVID-19 Clin Com Influenza Type A (TONJA) (Negative) Influenza Type B (TONJA) (Negative) Influenza A & B Note Radiology Impression Discussion of test interpretation with radiology: I have reviewed the radiologist's reading. Prescription Management Antiemetic Discharge Plan Discharge Clinical Impression: Gastroenteritis Patient Disposition: Home, Self-Care Instructions: Acute Nausea and Vomiting (ED), Acute Diarrhea (ED) Prescriptions: New ondansetron 4 mg tablet,disintegrating 4 mg PO TID PRN (Reason: nausea and vomiting) 5 Days Qty: 10 0RF Referrals: Micki Hernandez MD [Primary Care Provider] - 11/02/22
[2022-10-31 21:33] LABS: UPreg QC Valid YES; Urine Pregnancy NEGATIVE (NEGATIVE)
[2022-10-31 21:35] LABS: OBS Int Ctl Valid YES; OBS1 NEGATIVE (NEGATIVE)
[2022-10-31] MEDS: ondansetron HCL 4 MG/2 ML VIAL IVPUSH ×2 (22:06→23:29)
[2022-10-31] MEDS: 0.9 % Sodium Chloride 1,000 ML 999 ML IV (22:06)
--- NOTE | 2022-10-31 22:08 | PC.NURSE ---
Pt a&o, no sob or chest pain, pt medicated per Mar, Iv placed in nasir, Will continue to monitor.
[2022-10-31] MEDS: iohexoL 350 MG/ML 100 ML INFUS..BTL IV (22:50)
--- NOTE | 2022-10-31 23:14 | PC.NURSE ---
Provider into assess pt, rectal exam completed, Iv placed and medicated per mar, Ct scan completed, awaiting results. Will continue to monitor.
--- NOTE | 2022-10-31 23:29 | PC.NURSE ---
Reviewed discharge instructions with pt, pt verbalized understanding, medicated per Mar at this discharge.
--- NOTE | 2022-10-31 23:39 | PC.NURSE ---
Iv removed at discharge, medicated per Sep for nausea, reviewed discharge instructions, pt verbalized understanding, no sign of distress,
== END 2022-10-31 23:40 | disposition home or self-care (01) ==
PROVIDERS: Physician Assistant; Emergency Provider Emergency Medicine Emergency Medical Services; PCP Pediatrics
DX: K52.9 Noninfective gastroenteritis and colitis, unspecified (principal); R11.2 Nausea with vomiting, unspecified; Z20.822 Contact with and (suspected) exposure to COVID-19
CPT/HCPCS: 36415; 74177; 80048; 80076; 81003; 81025; 82272; 83690; 83735; 85025; 87502; 87635; 96361; 96374; 96375; 99284; J2405; Q9967

== ENCOUNTER 2025-04-04 07:56 | Outpatient (REF) | payer OTHER, SELFPAY ==
[2025-04-04 10:10] LABS: MANUAL DIFF FLAG NO
[2025-04-04 10:27] LABS: Appearance Urine Clear; Glucose Urine UA Negative (Negative); PH 8.0 (5.0-9.0); Specific Gravity - Urine 1.025 (1.005-1.025)
[2025-04-04 10:32] LABS: Hematocrit 40.0 % (37.0-47.0); Hemoglobin 12.7 g/dl (12.0-16.0); Imm Gran Abs Auto 0.03 X10*3/uL (0.00-0.03); Imm Gran Pct Auto 0.3 % (0.0-0.4); Lymphocytes Absolute Auto 2.6 X10*3/uL (1.2-4.9); Mean Corpuscular HGB Conc 31.8 g/dl (31.0-35.0); Mean Corpuscular Hemoglobin 27.2 pg (27.0-33.0); Mean Corpuscular Volume 85.7 fL (80.0-98.0); NRBC Abs Auto 0.000 X10*3/uL (0.0-0.012); NRBC Pct Auto 0.0 /100WBC (0.0-0.2); Platelet Count 291 X10*3/uL (160-400); Red Blood Count 4.67 X10*6/uL (4.20-5.50); White Blood Count 10.2 X10*3/uL (4.8-10.8)
[2025-04-04 11:11] LABS: Alanine Aminotransferase 8 U/L (0-31); Albumin Level 4.4 g/dL (3.5-5.0); Alkaline Phosphatase 62 U/L (39-117); Anion Gap 12 (12-20); Aspartate Amino Transferase 22 U/L (5-31); Blood Urea Nitrogen 8 mg/dL (9-16); Calcium 9.5 mg/dL (8.4-10.2); Carbon Dioxide 27 mmol/L (22-29); Chloride 109 mmol/L (96-108); Cholesterol 143 mg/dL (<200); Estimated Glomerular Filt Rate > 60; HDL Cholesterol 46 mg/dL (>40); Potassium 4.8 mmol/L (3.3-5.1); Sodium 143 mmol/L (135-145); Total Protein 7.4 g/dL (6.5-8.0); Triglycerides 62 mg/dL (<150)
== END 2025-04-04 07:57 | disposition home or self-care (01) ==
LOC: HO.HMGCLDS 07:56
PROVIDERS: PCP Internal Medicine; Visit Provider Internal Medicine
DX: Z00.00 Encounter for general adult medical examination without abnormal findings (principal); M54.9 Dorsalgia, unspecified
CPT/HCPCS: 36415; 80053; 80061; 81001; 84443; 85025; 96127; 99385

== ENCOUNTER 2025-04-04 07:56 | Outpatient (AMB) | payer OTHER, SELFPAY ==
--- OUTSIDE RECORDS SUMMARY | 2025-04-04 08:00 | XMS_ITS | Encounter Summary ---
Author Organization [facility] Address [address] [place] [address] Phone Care Team Providers Care Transition Mgr Rn Name Role Phone Micki Hernandez MD Primary Care Provider Encounter Details Date Type Department Care Team (Late st Contact Info) Description 09/15/2011 Documentation [facility] [place] [facility] [address] [place] [address] Family Medicine, Physician [address] [id number] Social History Tobacco Use Types Packs/Day Years Used Date Smoking Tobacco: Never Assessed Comments Unknown Sex and Gender Information Value Date Recorded Sex Assigned at Female 09/23/2021 11:24 AM EDT Legal Sex Female 5:01 PM EDT Gender Identity Female 09/23/2021 11:24 AM EDT Sexual Orientation Bisexual 09/23/2021 11 :24 AM EDT documented as of this encounter Plan of Treatment Not on file documented as of this encounter Visit Diagnoses Not on filedocumented in this encounter Care Teams Transition Mgr Rn Relationship Specialty Start Date End Date Micik Hernandez MD [address] [place] [id number] PCP - General 02/17/17 10/20/22 documented as of this encounter
--- OUTSIDE RECORDS SUMMARY | 2025-04-04 08:00 | XMS_ITS | Encounter Summary ---
Author Organization [facility] Address [address] [place] [address] Phone Care Team Providers Care Infection Control Practitioner Name Role Phone Micki Hernandez MD Primary Care Provider Reason for Visit * Reason Comments Med Refill Encounter Details Date Type Department Care Team (Late st Contact Info) Description 07/20/2019 Refill [facility] [address] [place] [address] Lizzette Guerrier NP 299 [facility] [address] [place] [address] Rash; Itching Social History Tobacco Use Types Packs/Day Years Used Date Smoking Tobacco: Never Smokeless Tobacco: Never Comments:Never smoker Alcohol Use Standard Drinks/Week Comments No 0 (1 standard drink = 0.6 oz pur e alcohol) Hunger/Food Answer Date Recorded No 03/25/2019 Stable Housing Answer Date Recorded No 07/13/2019 Transportation Concerns Answer Date Rec orded No 03/25/2019 Hazards in Home Answer Date Recorded No 03/25/2019 Financing Utilities Answer Date Recorde d No 03/25/2019 Safety at Home Answer Date Recorded No 03/25/2019 Outside Support Answer Date Recorded No 03/25/2019 Understanding Health Concerns Answer Da te Recorded No 03/25/2019 Financing Health Concerns Answer Date R ecorded No 03/25/2019 Missing School or Work Answer Date Castro rded No 03/25/2019 Comments No Sex and Gender Information Value Date Recorded Sex Assigned at Female 09/23/2021 11:24 AM EDT Legal Sex Female 5:01 PM EDT Gender Identity Female 09/23/2021 11:24 AM EDT Sexual Orientation Bisexual 09/23/2021 11 :24 AM EDT documented as of this encounter Miscellaneous Notes * Telephone Encounter - Micki Hernandez MD - 07/22/2019 1:25 PM EST Script sent. PPP * Telephone Encounter - Mayela Sanders LPN - 07/20/2019 10:30 AM EST Needs refill on loratadine 10mgs. Last pe 03/28 documented in this encounter Plan of Treatment Not on file documented as of this encounter Visit Diagnoses Diagnosis Rash Rash and other nonspecific skin eruption Itching Unspecified pruritic disorder documented in this encounter Care Teams Infection Control Practitioner Relationship Specialty Start Date End Date Micki Hernandez MD [address] [place] [address] GIANNA Cottrell [id number] PCP - General 02/17/17 10/20/22 documented as of this encounter
--- OUTSIDE RECORDS SUMMARY | 2025-04-04 08:00 | XMS_ITS | Encounter Summary ---
Author Organization [facility] Address [address] [place] [address] Phone Care Team Providers Care Television Production Technician Name Role Phone Micki Hernandez MD Primary Care Provider Encounter Details Date Type Department Care Team (Late st Contact Info) Description 10/13/2016 Documentation [facility] Family Medicine [address] [place] [address] Family Medicine, Physician [facility] [place] [phone] Social History Tobacco Use Types Packs/Day Years Used Date Smoking Tobacco: Never Comments:Never smoker Comments Unknown Sex and Gender Information Value [...] on filedocumented in this encounter Care Teams Television Production Technician Relationship Specialty Start Date End Date Micki Hernandez MD [address] [place] [address] PCP - General 02/17/17 10/20/22 documented as of this encounter
--- OUTSIDE RECORDS SUMMARY | 2025-04-04 08:00 | XMS_ITS | Encounter Summary ---
Author Organization [facility] Address [address] [place] [address] Phone Care Team Providers Care Metal Miner Blasting Name Role Phone Micki Hernandez MD Primary Care Provider Encounter Details Date Type Department Care Team (Late st Contact Info) Description 11/08/2011 Documentation [facility] Family Medicine [address] [place] [address] Family Medicine, Physician [address] [place], [place] [phone] Social History Tobacco Use Types Packs/Day Years [...] on filedocumented in this encounter Care Teams Metal Miner Blasting Relationship Specialty Start Date End Date Micki Hernandez MD [address] [place] [address] PCP - General 02/17/17 10/20/22 documented as of this encounter
--- OUTSIDE RECORDS SUMMARY | 2025-04-04 08:00 | XMS_ITS | Encounter Summary ---
Author Organization [facility] Address [address] [place] [address] Phone Care Team Providers Care Fur Tanner Name Role Phone Micki Hernandez MD Primary Care Provider Encounter Details Date Type Department Care Team (Late st Contact Info) Description 02/23/2017 Conversion Encounter [facility] [address] [place] [address] Social History Tobacco Use Types Packs/Day Years [...] on filedocumented in this encounter Care Teams Fur Tanner Relationship Specialty Start Date End Date Micki Hernandez MD [address] [place] [address] PCP - General 02/17/17 10/20/22 documented as of this encounter
--- OUTSIDE RECORDS SUMMARY | 2025-04-04 08:00 | XMS_ITS | Encounter Summary ---
Author Organization [facility] Address [address] [place] [address] Phone Care Team Providers Care Fabricator Foam Rubber Name Role Phone Micki Hernandez MD Primary Care Provider Encounter Details Date Type Department Care Team (Late st Contact Info) Description 12/08/2016 Documentation [facility] Family Medicine [address] [place] [address] Family Medicine, Physician [facility] [place], [place] [phone] Social History Tobacco Use Types Packs/Day Years [...] on filedocumented in this encounter Care Teams Fabricator Foam Rubber Relationship Specialty Start Date End Date Micki Hernandez MD [address] [place] [address] PCP - General 02/17/17 10/20/22 documented as of this encounter
--- OUTSIDE RECORDS SUMMARY | 2025-04-04 08:00 | XMS_ITS | Clinical Summary ---
Author Organization [facility] Address [address] [place] [address] Phone Care Team Providers Care Field Artillery Targeting Technician Name Role Phone Unavailable Primary Care Provider Unavailabl e Allergies No known active allergies Medications No known medications Active Problems Problem Noted Date Diagnosed Date Need for case management follow-up 04/29/2020 Overview (04/29/2020): STD screen not done due to national shortage of tests ADHD (attention deficit hype ractivity disorder), inattentive type 03/20/2018 Overview (03/20/2018): No treatment Learning disabilities 03/20/2018 Anxiety 10/10/2017 Overview (03/25/2019): Hx of counseling in the past with Dr. Yang. 2017 and 2018 - not interested in restarting counseling. Discussed finding outlets for stress. Volleyball and softball help a lot. Intrinsic atopic dermatitis 11/02/2009 Immunizations Immunization Administration Dates Next Due DTaP 5 04/04/2006, 3,2001,10/02,2001 H1N1 09/11/2009 HPV Vaccine 9 Valent 01/27/2015 HPV, Quadrivalent 02/25/2014,01/22/2014 Hep A, ped/adol 01/27/2015,01/22/2014 Hep B, ped/adol 2001,2001,2001 Hib (PRP-T) 09/09/2002, 2,2001,07/23 IPV 04/04/2006, 2,2001,07/23 Influenza, injectable, quadr ivalent, preservative free 04/29/2020,03/20/2018,03/08/2017,03/08 MMR 04/04/2006,05/24/2002 Meningococcal B Trumenba 04/29/2020,03/25/2019 Meningococcal Conj (Menactra) MCV4P 03/20/2018,0 10/16/2012 Pneumococcal Conjugate 11/29/2002,2001,2001,07/23 Tdap 10/16/2012 Varicella 04/04/2007,05/24/2002 Family History Relation Name Status Comments Father Alive Mother Bob Pérez Alive Other Family history of Diabetes mellitus, Family history of Hyperlipidemia, Family history of ADD/ADHD, Family history of Migraines Sister Mikayla Alive Social History Tobacco Use Types Packs/Day Years Used Date Smoking Tobacco: Never Smokeless Tobacco: Never Tobacco Cessation:Counseling Given: Yes Comments:Never smoker Alcohol Use Standard Drinks/Week Comments No 0 (1 standard drink = 0.6 oz pur e alcohol) Hunger/Food Answer Date Recorded In the last 12 months, did y ou or your family ever eat less than you felt you should because there wasn't enough money for food? No 09/23/2021 Stable Housing Answer Date Recorded Are you worried that in the next 2 months you may not have stable housing? No 09/23/2021 Transportation Concerns Answer Date Rec orded In the last 12 months, have you or your family ever had to go without healthcare because you didn't have a way to get there? No 09/23/2021 Hazards in Home Answer Date Recorded Think about the place you li ve. Do you have problems with any of the following? Pests (mice or roaches), mold, no/not working smoke detectors, water leaks, no window guards. No 2021 Financing Utilities Answer Date Recorde d In the last 12 months, has t he electric, gas, oil, or water company threatened to shut off your services in your home? No 09/23/2021 Safety at Home Answer Date Recorded Are you or your family worried about feeling saf e in your home? No 09/23/2021 Outside Support Answer Date Recorded Do you feel that you need mo re support from other people or programs to help you care for yourself or your family? No 09/23/2021 Understanding Health Concerns Answer Da te Recorded Do you need help understandi ng your or your child's healthcare needs (diagnosis, medications, plan, etc.)? No 09/23/2021 Financing Health Concerns Answer Date R ecorded In the last 12 months, was t here a time when your child needed to see a doctor or get medications or supplies but could not because of cost? No 09/23/2021 Missing School or Work Answer Date Castro rded Did you or your child miss s chool or work because of a health problem that could have been avoided? No 09/23/2021 Comments No Sex and Gender Information Value Date Recorded Sex Assigned at Female 09/23/2021 11:24 AM EDT Legal Sex Female 5:01 PM EDT Gender Identity Female 09/23/2021 11:24 AM EDT Sexual Orientation Bisexual 09/23/2021 11 :24 AM EDT Last Filed Vital Signs Vital Sign Reading Time Taken Comments Blood Pressure 116/62 09/23/2021 10:44 AM EDT Pulse 66 09/23/2021 10:44 AM EDT Temperature 36.8 C (98.2 F) 04/29/2020 10:20 AM EDT Respiratory Rate - - Oxygen Saturation - - Inhaled Oxygen Concentration - - Weight 94.2 kg (207 lb 9.6 oz) 09/23/2021 10:44 AM EDT Height 164.1 cm (5' 4.6 ) 09/23/2021 10:44 AM ED T Body Mass Index 34.98 09/23/2021 10:44 AM EDT Plan of Treatment Health Maintenance Due Date Last Done Comments DTaP,Tdap,and Td Vaccines (7 - Td or Tdap) 10/16/2022 10/16/2012, 04/04/2006, 11/29/2002, Additional history exists Influenza Vaccines (#1) 2025 05/05/20, 10/04/2021, 04/29/2020, Additional history exists COVID-19 Vaccine (3 - 2024-2 6 season) 2025 01/26/2021, 01/05/2021 Hepatitis B Vaccines Completed 2001, 2001, 2001 HIB Vaccines Completed 09/09/2002, 11/08, 2001, Additional history exists Pneumococcal Vaccine Completed 11/29/2002, 2001, 2001, Additional history exists IPV Vaccines Completed 04/04/2006, 02/08, 2001, Additional history exists MMR Vaccines Completed 04/04/2006, 05/24/2002 Varicella Vaccines Completed 04/04/2007, 05/24/2002 HPV Vaccines Completed 01/27/2015, 02/07, 01/22/2014 Hepatitis A Vaccines Completed 01/27/2015, 01/23/20 14 Meningococcal Vaccine Completed 03/20/2018, 013 Men B Vaccine Completed 04/29/2020, 03/25/2019 Procedures * Due to [place] [employer] law, this organization might not be sharing sensitive test results. Procedure Name Priority Date/Time Associated Diagnosis Comments CHLAMYDIA AND GONORRHEA, AMPLIFIED Routine 09/23/2021 11:34 AM EDT Screening for chlamydial disease from Last 3 Months or Most Recently Relevant to Health Maintenance Results * Due to [place] [employer] law, this organization might not be sharing sensitive test results. * Chlamydia and Gonorrhoea, Amplified (09/23/2021 11:34 AM EDT) Chlamydia Trachomatis, DNA Probe NEGATIVE (NEG) [facility] Comment: No Chlamydia Trachomatis RNA detected in this patient's sample (REFERENCE RANGE/NORMAL VALUE: NOT DETECTED) Note: This test uses clinical medical transcriptionist- mediated amplification method to detect rRNA from C. Trachomatis URINE GC AMP PROBE NEGATIVE (NEG) [facility] Comment: No Neisseria Gonorrhoeae RNA detected in this patient's sample (REFERENCE RANGE/NORMAL VALUE: NOT DETECTED) NOTE: This test uses clinical medical transcriptionist-mediated amplification method to detect rRNA from N.Gonorrhoeae. A negative result does not preclude infection. In the case of a negative urine result, testing of an endocervical(female) or urethral (male) specimen is recommended if there is high clinical suspicion of infection. Due to very high sensitivity of Nucleic Acid Amplification Test, false positive results may occur. Therefore, specimen handling is extremely important. In patients in whom the disease is unlikely, additional sample for testing should be considered after an initial positive result. The performance characteristics of this test have not been evaluated in children. The Aptima Combo2 assay is not intended for the evaluation of suspected sexual abuse or for other medico-legal indications. The ordering provider should assess if the patient had consensual sex without risk of sexual abuse. Consult the [facility] if needed. Contact phone number . Therapeutic failure or success cannot be determined with the Aptima Combo2 assay since nucleic acid may persist following appropriate antimicrobial therapy. The Centers for Disease Control and Prevention (CDC) recommends confirmatory retesting using culture or a different nucleic acid amplification test when positive results occur, if indicated. Testing performed or reported by [facility], a Service of [facility], [address] [place] [address] Marquis Vail MD, Special Education Superintendent [facility]# [id number] Urine (Urine) 09/23/2021 11: 34 AM EDT 09/23/2021 4:07 PM EDT us Micki Hernandez MD LAB MICROBIOLOGY - GENERAL ORDERABLES Final Result [facility] from Last 3 Months or Most Recently Relevant to Health Maintenance Insurance [facility] NON PCC [facility] HMO
--- OUTSIDE RECORDS SUMMARY | 2025-04-04 08:00 | XMS_ITS | Encounter Summary ---
Author Organization [facility] Address [address] [place] [phone] Phone Care Team Providers Care Budget Technician Name Role Phone Micki Hernandez MD Primary Care Provider [phone] Encounter Details Date Type Department Care Team (Late st Contact Info) Description 12/09/2016 Documentation [facility] Family Medicine [address] [place] [address] Family Medicine, Physician [facility] [place] [phone] Social History Tobacco Use Types Packs/Day Years [...] on filedocumented in this encounter Care Teams Budget Technician Relationship Specialty Start Date End Date Micki Hernandez MD [address] [place] [address] PCP - General 02/17/17 10/20/22 documented as of this encounter
[2025-04-04 08:15] VITALS: BP 100/62; PULSE 94; RESP 19; TEMP 36.8; O2SAT 98; BMI 36.6
--- NOTE | 2025-04-04 08:15 | MHC.PC.OV ---
Vital Signs 04/04/25 08:15 Height 5 ft 4 in Weight 213 lb BMI 36.6 BP 100/62 Blood Pressure Location Rt brachial Position Sitting Respiration 19 Pulse 94 Pulse Source Pulse Oximeter Temp 98.2 F Temp Source Oral Pulse Oximetry (%) 98 Oxygen Delivery Method Room Air Intake Visit Reasons: New Appt New Patient requesitng an PE Intake Note: Pt is here today for New patient visit PE. Allergies No Known Allergies Allergy (Verified 04/04/25 08:17) Tobacco use date assessed: 04/04/25 Dental Screening Dental Screen Date: 04/04/25 Did you have a dental visit in the last 12 months?: Yes Did you have a dental problem in the last 6 months where you did not have access to dental care?: No Was dental information given to patient?: Patient has dentist HPI New Appt New Patient requesitng an PE HPI Details Pt presents for MEDICAL MASSAGE THERAPIST PE. Patient complains of chronic mid back pain worse after sitting for long time and because of large and heavy breasts. [facility] Medical History (Updated 04/04/25 @ 08:37 by Disha Ayala MD) Annual physical exam Left knee dislocation Surgical History (Updated 04/04/25 @ 08:20 by Lauren Gilmore [facility]) No pertinent past surgical history Family History (Updated 04/04/25 @ 08:37 by Disha Ayala MD) Father HTN (hypertension) Hyperlipidemia Mother No problems noted. Sister Mental health disorder Social History (Updated 04/04/25 @ 08:42 by Disha Ayala MD) Household Members Other:: lives with parents, works in dental office, Housing: House Patient Tobacco Use Status: Never used Tobacco e-Cigarette/Vaping Use: Never Used service: No Current occupational status: employed Cognitive needs: No Hearing needs: No Vision needs: Yes Questionnaire PHQ-9 Over the last 2 weeks, how often have you been bothered by any of the following problems? 1. Little interest or pleasure in doing things: several days 2. Feeling down, depressed, or hopeless: not at all 3. Trouble falling or staying asleep, or sleeping too much: not at all 4. Feeling tired or having little energy: more than half the days 5. Poor appetite or overeating: more than half the days 6. Feeling bad about yourself - or that you are a failure or have let yourself or your family down: several days 7. Trouble concentrating on things, such as reading the newspaper or watching television: not at all 8. Moving or speaking so slowly that other people could have noticed. Or the opposite - being so fidgety or restless that you have been moving around a lot more than usual: not at all 9. Thoughts that you would be better off or of hurting yourself in some way: not at all Total score: 6 Depression Screening Interpretation: Negative Depression Screening Done: Yes 44689 - PHQ-9 Billing: Yes Source: Developed by Drs. Kendrick Avendaño, Tasha Stevenson, Juan Vega and colleagues, with an educational suzanne from [employer]. Thrive Questionnaire Date Thrive assessed: 03/28/25 I am a: Patient What is your living situation today?: I have a steady place to live Within the past 12 months, did the food you bought not last and you didn't have the money to get more?: Sometimes True Within the past 12 months, did you worry whether your food would run out before you got money to buy more?: Never true Do you have trouble paying for medicines?: No Do you have trouble getting transportation to medical appointments?: No Do you have trouble paying your heating and electricity bill?: No Do you have trouble taking care of your child, family member or friend?: No Do you have trouble with day-to-day activities such as bathing, preparing meals, shopping, managing finances, etc.?: No Are you currently unemployed and looking for a job?: Yes Are you interested in more education?: Yes Please select the resources that you would like help with: None Currently or been in a relationship where the following occur: No concerns reported THRIVE Score: 1 AUDIT C Alcohol Use Questionnaire (AUDIT-C) 1. How often do you have a drink containing alcohol?: Never 3. How often do you have six or more drinks on one occasion?: Never Total Score: 0 RAQUEL-7 AMB Questionnaire RAQUEL-7 Date RAQUEL - 7 assessed: 04/04/25 Feeling nervous, anxious, or on edge: 2 = More than half the days Not being able to stop or control worryin = Several days Worrying too much about different things: 1 = Several days Trouble relaxin = Not at all Being so restless that it is hard to sit still: 0 = Not at all Becoming easily annoyed or irritable: 0 = Not at all Feeling afraid as if something awful might happen: 0 = Not at all Total RAQUEL-7 score (0-4 normal; 5-9 mild; 10-14 moderate; 15-21 severe): 4 Source: Developed by Drs. Kendrick Avendaño, Tasha Stevenson, Juan Vega and colleagues, with an educational suzanne from [employer]. RAQUEL-7 Assessment Billing RAQUEL-7 Assessment Tool: RAQUEL-7 Assessment 06807 Review of Systems Const All systems reviewed & are unremarkable except as noted in HPI and below Reports no additional complaints Eyes Reports no additional complaints ENT Reports no additional complaints Card Reports no additional complaints Resp Reports no additional complaints GI Reports no additional complaints Reports no additional complaints Physical exam (Primary Care) Vital Signs: Last Vital Signs Temp 98.2 F 04/04/25 08:15 Pulse 94 04/04/25 08:15 Resp 19 04/04/25 08:15 BP 100/62 04/04/25 08:15 Pulse Ox 98 04/04/25 08:15 Oxygen Delivery Method Room Air 04/04/25 08:15 BMI result Body Mass Index 36.6 Tobacco/Smoking Status: Tobacco use Status Tobacco use date assessed 04/04/25 04/04/25 08:25 Patient Tobacco Use Status Never used Tobacco 04/04/25 08:42 e-Cigarette/Vaping Use Never Used 04/04/25 08:42 PHQ-9: PHQ-9 Score PHQ-9: Total score 6 04/04/25 08:34 Depression Screening Interpretation: Negative Thrive Assessment: Date of Thrive Assessment Date Thrive assessed 03/28/25 04/04/25 08:25 Currently or been in a relationship where the following occur: No concerns reported Const General: no acute distress HENMT Head: Yes normal to inspection Face and sinus: Yes normal facial exam Throat: Yes posterior oropharynx normal Eyes General: appearance normal, both eyes and all related structures Neck Neck: Yes no lymphadenopathy and Yes supple Resp Effort & Inspection: normal respiratory effort Auscultation: clear to auscultation bilaterally Cardio Rhythm: regular rhythm Heart sounds: S1 normal heart sound present and S2 normal heart sound present GI Inspection: Yes normal to inspection Palpation (GI): Soft to palpation Percussion: Yes normal to percussion Auscultation: normal bowel sounds Coding Level of Care Code New Pt Prev Care 18-39yr(00186 Diagnoses Back pain M54.9 Annual physical exam Z00.00 Additional Codes RAQUEL-7 Assessment Billing - RAQUEL-7 Assessment Tool: RAQUEL-7 Assessment 55145 ([id number]) PHQ-9 - 99694 - PHQ-9 Billing: Yes ([id number]) Assessment & Plan Assessment & Plan (1) Back pain: Code(s): M54.9 - Dorsalgia, unspecified Category: Medical Plan: for chronic mid back pain refer to PT, patient was advised to by special supportive bra (2) Annual physical exam: Code(s): Z00.00 - Encounter for general adult medical examination without abnormal findings Category: Medical Plan: Well-balanced diet regular physical activity discussed with the patient. She will return for fasting blood work. Orders: Orders Lipid Panel Today Z00.00 - Encounter for general adult medical examination without abnormal findings Complete Blood Count Auto Diff Today Z00.00 - Encounter for general adult medical examination without abnormal findings UA w Microscopic Today Z00.00 - Encounter for general adult medical examination without abnormal findings PT Evaluation and Treatment Today M54.9 - Dorsalgia, unspecified Comprehensive [place]. Panel Fast Today Z00.00 - Encounter for general adult medical examination without abnormal findings TSH reflex Free T4 Today Z00.00 - Encounter for general adult medical examination without abnormal findings Medications: Discontinued ondansetron Discontinued Reason: Patient Completed Course 4 mg PO TID 5 days PRN 10 tabs 0RF nausea and vomiting
== END 2025-04-04 09:05 | disposition home or self-care (01) ==
PROVIDERS: PCP Pediatrics; Visit Provider Internal Medicine
DX: M54.9 Dorsalgia, unspecified (principal); Z00.00 Encounter for general adult medical examination without abnormal findings

== ENCOUNTER 2025-05-06 10:39 | Outpatient (AMB) | payer OTHER, SELFPAY ==
[2025-05-06 10:45] VITALS: BP 104/68; PULSE 96; RESP 18; TEMP 36.7; O2SAT 97; BMI 36.2
--- NOTE | 2025-05-06 10:45 | MHC.PC.OV ---
Vital Signs 05/06/25 10:45 Height 5 ft 4 in Weight 211 lb BMI 36.2 BP 104/68 Blood Pressure Location Lt brachial Position Sitting Respiration 18 Pulse 96 Pulse Source Pulse Oximeter Temp 98.0 F Temp Source Oral Pulse Oximetry (%) 97 Oxygen Delivery Method Room Air Intake Visit Reasons: pap smear Intake Note: Pt is here today for a pap. Allergies No Known Allergies Allergy (Verified 05/06/25 10:47) Medication List - Last Reconciled 05/06/25 by Disha Ayala MD No Known Home Meds Tobacco use date assessed: 05/06/25 Dental Screening Dental Screen Date: 04/04/25 HPI pap smear HPI Details Patient presents for Pap smear and breast exam. [facility] Medical History Annual physical exam Left knee dislocation Surgical History No pertinent past surgical history Family History Father HTN (hypertension) Hyperlipidemia Mother No problems noted. Sister Mental health disorder Social History (Reviewed 05/06/25 @ 10:52 by Lauren Gilmore [facility]) Household Members Other:: lives with parents, works in dental office, Housing: House Patient Tobacco Use Status: Never used Tobacco e-Cigarette/Vaping Use: Never Used service: No Current occupational status: employed Cognitive needs: No Hearing needs: No Vision needs: Yes Questionnaire PHQ-9 Over the last 2 weeks, how often have you been bothered by any of the following problems? 1. Little interest or pleasure in doing things: not at all 2. Feeling down, depressed, or hopeless: not at all 3. Trouble falling or staying asleep, or sleeping too much: not at all 4. Feeling tired or having little energy: not at all 5. Poor appetite or overeating: not at all 6. Feeling bad about yourself - or that you are a failure or have let yourself or your family down: not at all 7. Trouble concentrating on things, such as reading the newspaper or watching television: not at all 8. Moving or speaking so slowly that other people could have noticed. Or the opposite - being so fidgety or restless that you have been moving around a lot more than usual: not at all 9. Thoughts that you would be better off or of hurting yourself in some way: not at all Total score: 0 Depression Screening Interpretation: Negative Depression Screening Done: Yes Source: Developed by Drs. Kendrick Avendaño, Juan Traore and colleagues, with an educational suzanne from [employer]. Thrive Questionnaire Date Thrive assessed: 03/28/25 I am a: Patient What is your living situation today?: I have a steady place to live Within the past 12 months, did the food you bought not last and you didn't have the money to get more?: Sometimes True Within the past 12 months, did you worry whether your food would run out before you got money to buy more?: Never true Do you have trouble paying for medicines?: No Do you have trouble getting transportation to medical appointments?: No Do you have trouble paying your heating and electricity bill?: No Do you have trouble taking care of your child, family member or friend?: No Do you have trouble with day-to-day activities such as bathing, preparing meals, shopping, managing finances, etc.?: No Are you currently unemployed and looking for a job?: Yes Are you interested in more education?: Yes Please select the resources that you would like help with: None Currently or been in a relationship where the following occur: No concerns reported THRIVE Score: 1 RAQUEL-7 AMB Questionnaire RAQUEL-7 Date RAQUEL - 7 assessed: 04/04/25 Source: Developed by Drs. Kendrick Avendaño, Tasha Stevenson, Juan Vega and colleagues, with an educational suzanne from [employer]. Review of Systems Const All systems reviewed & are unremarkable except as noted in HPI and below ENT Reports no additional complaints Card Reports no additional complaints Resp Reports no additional complaints GI Reports no additional complaints Reports no additional complaints Physical exam (Primary Care) Vital Signs: Last Vital Signs Temp 98.0 F 05/06/25 10:45 Pulse 96 05/06/25 10:45 Resp 18 05/06/25 10:45 BP 104/68 05/06/25 10:45 Pulse Ox 97 05/06/25 10:45 Oxygen Delivery Method Room Air 05/06/25 10:45 BMI result Body Mass Index 36.2 Tobacco/Smoking Status: Tobacco use Status Tobacco use date assessed 05/06/25 05/06/25 10:52 Patient Tobacco Use Status Never used Tobacco 05/06/25 10:45 e-Cigarette/Vaping Use Never Used 05/06/25 10:45 PHQ-9: PHQ-9 Score PHQ-9: Total score 0 05/06/25 10:52 Depression Screening Interpretation: Negative Thrive Assessment: Date of Thrive Assessment Date Thrive assessed 03/28/25 05/06/25 10:45 Currently or been in a relationship where the following occur: No concerns reported Const General: no acute distress Neck Neck: Yes supple Chest Breast/axilla inspection: normal inspection of the breasts and normal inspection of the axillae Breast/axilla palpation: normal palpation of the breasts and normal palpation of the axillae Resp Effort & Inspection: normal respiratory effort Auscultation: clear to auscultation bilaterally Cardio Rhythm: regular rhythm Heart sounds: S1 normal heart sound present and S2 normal heart sound present GI Inspection: Yes normal to inspection Palpation (GI): Soft to palpation Percussion: Yes normal to percussion Auscultation: normal bowel sounds External Female Exam: normal external appearance Speculum Exam - Vagina: normal appearance of the vagina Speculum Exam - Cervix: normal appearance of the cervix Bimanual exam- vagina & uterus: normal bimanual exam Coding Level of Care Code Est Pt Level 3 (19490) Diagnoses Annual physical exam Z00. Assessment & Plan Assessment & Plan (1) Annual physical exam: Code(s): Z00. - Encounter for general adult medical examination without abnormal findings Category: Medical Plan: Pap smear and pelvic exam were done today Orders: Orders HIV Ab/Ag Today Z00. - Encounter for general adult medical examination without abnormal findings Syphilis Screen Today Z00.00 - Encounter for general adult medical examination without abnormal findings Pap Smear Today Z00.00 - Encounter for general adult medical examination without abnormal findings Bacterial Vaginosis Panel Today Z00.00 - Encounter for general adult medical examination without abnormal findings CT NG by PCR Vag/Cerv Today Z00.00 - Encounter for general adult medical examination without abnormal findings
--- OUTSIDE RECORDS SUMMARY | 2025-05-06 13:27 | XMS_ITS | Encounter Summary ---
Author Organization [facility] Address [address] [place] [phone] Phone Care Team Providers Care Heat Treat Technician Name Role Phone Micki Hernandez MD Primary Care Provider Encounter Details Date Type Department Care Team (Late st Contact Info) Description 10/13/2016 Documentation [facility] [place] [address] [place] [address] Family Medicine, Physician [facility] [place] [phone] Social History Tobacco Use Types Packs/Day Years [...] on filedocumented in this encounter Care Teams Heat Treat Technician Relationship Specialty Start Date End Date Micki Hernandez MD [address] [place] [id number] PCP - General 02/17/17 10/20/22 documented as of this encounter
--- OUTSIDE RECORDS SUMMARY | 2025-05-06 13:27 | XMS_ITS | Clinical Summary ---
Author Organization [facility] Address [address] [place] [phone] Phone Care Team Providers Care Mixing Engineer Name Role Phone Unavailable Primary Care Provider [...] Completed 04/29/2020, 03/25/2019 Procedures * Due to [place] law, this organization might not be sharing sensitive test results. Procedure Name Priority Date/Time Associated Diagnosis Comments CHLAMYDIA AND GONORRHEA, AMPLIFIED Routine 09/23/2021 11:34 AM EDT Screening for chlamydial disease from Last 3 Months or Most Recently Relevant to Health Maintenance Results * Due to [place] law, this organization might not be sharing sensitive test results. * Chlamydia and Gonorrhoea, Amplified (09/23/2021 11:34 AM EDT) Chlamydia Trachomatis, DNA Probe NEGATIVE (NEG) [facility] Comment: No Chlamydia Trachomatis RNA detected in this patient's sample (REFERENCE RANGE/NORMAL VALUE: NOT DETECTED) Note: This test uses lighting engineer- mediated amplification method to detect rRNA from C. Trachomatis URINE GC AMP PROBE NEGATIVE (NEG) [facility] Comment: No Neisseria Gonorrhoeae RNA detected in this patient's sample (REFERENCE RANGE/NORMAL VALUE: NOT DETECTED) NOTE: This test uses lighting engineer-mediated amplification method to detect rRNA from N.Gonorrhoeae. [...] if indicated. Testing performed or reported by [facility], a Service of [facility], [address] [place] [address] Marquis Vail MD, Press Leader [facility]# [id number] Urine (Urine) 09/23/2021 11: 34 AM EDT 09/23/2021 4:07 PM EDT us Micki Hernandez MD LAB MICROBIOLOGY - GENERAL ORDERABLES Final Result [facility] from Last 3 Months or Most Recently Relevant to Health Maintenance Insurance [facility] NON PCC [facility] HMO
--- OUTSIDE RECORDS SUMMARY | 2025-05-06 13:27 | XMS_ITS | Encounter Summary ---
Author Organization [facility] Address [address] [place] [address] Phone Care Team Providers Care Brineyard Supervisor Name Role Phone Micki Hernandez MD Primary Care Provider Encounter Details Date Type Department Care Team (Late st Contact Info) Description 12/08/2016 Documentation [facility] [place] [address] [place] [address] Family Medicine, Physician [facility] [place] [phone] Social History Tobacco Use Types Packs/Day Years [...] on filedocumented in this encounter Care Teams Brineyard Supervisor Relationship Specialty Start Date End Date Micki Hernandez MD [address] [place] [phone] PCP - General 02/17/17 10/20/22 documented as of this encounter
--- OUTSIDE RECORDS SUMMARY | 2025-05-06 13:27 | XMS_ITS | Encounter Summary ---
Author Organization [facility] Address [address] [place] [address] Phone Care Team Providers Care Iap Displays Analyst Name Role Phone Micki Hernandez MD Primary Care Provider [phone] Encounter Details Date Type Department Care Team (Late st Contact Info) Description 12/09/2016 Documentation [facility] [place] Family Medicine [address] [place] [address] Family Medicine, Physician [facility] [place], [place] [phone] Social History Tobacco Use Types Packs/Day Years [...] on filedocumented in this encounter Care Teams Iap Displays Analyst Relationship Specialty Start Date End Date Micki Hernandez MD [address] [place] [phone] PCP - General 02/17/17 10/20/22 documented as of this encounter
--- OUTSIDE RECORDS SUMMARY | 2025-05-06 13:27 | XMS_ITS | Encounter Summary ---
Author Organization [facility] Address [address] [place] [address] Phone Care Team Providers Care Application Lead Name Role Phone Micki Hernandez MD Primary Care Provider Encounter Details Date Type Department Care Team (Late st Contact Info) Description 02/23/2017 Conversion Encounter [facility] [address] [place] [address] Social History Tobacco Use Types Packs/Day Years [...] on filedocumented in this encounter Care Teams Application Lead Relationship Specialty Start Date End Date Micki Hernandez MD [address] [place] [address] PCP - General 02/17/17 10/20/22 documented as of this encounter
--- OUTSIDE RECORDS SUMMARY | 2025-05-06 13:28 | XMS_ITS | Encounter Summary ---
Author Organization [facility] Address [address] [place] [address] Phone Care Team Providers Care Rubber And Pounder Name Role Phone Micki Hernandez MD Primary Care Provider Encounter Details Date Type Department Care Team (Late st Contact Info) Description 09/15/2011 Documentation [facility] Family Medicine [address] [place] [address] Family Medicine, Physician [address] [place], [place] [phone] Social History Tobacco Use Types Packs/Day Years [...] on filedocumented in this encounter Care Teams Rubber And Pounder Relationship Specialty Start Date End Date Micki Hernandez MD [address] [place] [id number] PCP - General 02/17/17 10/20/22 documented as of this encounter
--- OUTSIDE RECORDS SUMMARY | 2025-05-06 13:28 | XMS_ITS | Encounter Summary ---
Author Organization [facility] Address [address] [place] [address] Phone Care Team Providers Care Relay Worker Name Role Phone Micki Hernandez MD Primary Care Provider Reason for Visit * Reason Comments Med Refill Encounter Details Date Type Department Care Team (Late st Contact Info) Description 07/20/2019 Refill [facility] [address] [place] [address] Lizzette Guerrier NP [address] [facility] [address] [place] [address] Rash; Itching Social History Tobacco Use Types [...] disorder documented in this encounter Care Teams Relay Worker Relationship Specialty Start Date End Date Micki Hernandez MD [address] [place] [address] GIANNA Cottrell [address] PCP - General 02/17/17 10/20/22 documented as of this encounter
--- OUTSIDE RECORDS SUMMARY | 2025-05-06 13:28 | XMS_ITS | Encounter Summary ---
Author Organization [facility] Address [address] [place] [address] Phone Care Team Providers Care Data Modeling Specialist Name Role Phone Micki Hernandez MD Primary Care Provider Encounter Details Date Type Department Care Team (Late st Contact Info) Description 11/08/2011 Documentation [facility] Family Medicine [address] [place] [address] Family Medicine, Physician [address] [place] [phone] Social History Tobacco Use Types Packs/Day Years [...] on filedocumented in this encounter Care Teams Data Modeling Specialist Relationship Specialty Start Date End Date Micki Hernandez MD [address] [place] [phone] PCP - General 02/17/17 10/20/22 documented as of this encounter
== END 2025-05-06 11:42 | disposition home or self-care (01) ==
PROVIDERS: PCP Pediatrics; Visit Provider Internal Medicine
DX: Z01.419 Encounter for gynecological examination (general) (routine) without abnormal findings (principal)

== ENCOUNTER 2025-05-06 10:39 | Outpatient (REF) | payer OTHER, SELFPAY ==
[2025-05-06 15:05] LABS: CT PCR NOT DETECTED (Not Detect.); NG PCR NOT DETECTED (Not Detect.)
== END 2025-05-06 10:40 | disposition home or self-care (01) ==
LOC: HO.LNP 10:39
PROVIDERS: PCP Pediatrics; Visit Provider Internal Medicine
DX: Z00.00 Encounter for general adult medical examination without abnormal findings (principal)
CPT/HCPCS: 87491; 87591; 88175; 99395